=== PATIENT | male | born 2000 ===

== ENCOUNTER 2023-05-14 11:41 | Outpatient (CLI) | payer OTHER ==
--- NOTE | 2023-05-14 15:02 | XRAY Report ---
PROCEDURE: Knee Standing LT INDICATIONS: LEFT KNEE PAIN TECHNIQUE: 2 views of the left knee. COMPARISON: None. FINDINGS: Bones: No fractures or dislocations. No suspicious bony lesions. Soft tissues: No knee joint effusion. No suspicious soft tissue calcifications or masses. IMPRESSION: No acute bony abnormality. No significant effusion. No significant degenerative change. Reviewed by: Antonino Barraza MD on 05/14/2023 3:01 PM PDT Approved by: Antonino Barraza MD on 05/14/2023 3:01 PM PDT Station ID: [id number]
== END 2023-05-14 11:42 | disposition home or self-care (01) ==
LOC: DI 11:41
PROVIDERS: ATTEND Nurse Practitioner
DX: S86.912A Strain of unspecified muscle(s) and tendon(s) at lower leg level, left leg, initial encounter (principal)